=== PATIENT | male | born 1990 | race Asian ===

== ENCOUNTER 2018-11-19 15:08 | Inpatient (IN) ==
--- NOTE | 2018-11-19 16:24 | Emergency Department Note ---
History of Present Illness General Chief Complaint: Abnormal Labs/Diagnostic Testing Stated Complaint: ABNORMAL MRI, REFERRED BY [facility] Source: patient Mode of arrival: ambulatory Limitations: no limitations History of Present Illness Provider Complaint: + visual disturbance (right side visual field deficit) Onset (ago): 8 day(s) History of same: No Severity: mild Maximum Pain Intensity: 2 Current Pain Intensity: 2 Quality: + constant Relieved By: + none Exacerbated By: + none Context: + gradual onset On Anticoagulants: No Associated symptoms: + denies other symptoms Treatments Prior to Arrival: + none HPI Narrative: This 28-year-old male patient presents emergency department today , ambulatory, accompanied by friends. He was sent here by [facility] due to an abnormal MRI. The patient states 1-2 weeks ago, he developed upper respiratory infection symptoms. He states this was associated with a headache. 8 days ago, he reports losing vision in his right eye. He was seen and evaluated by [facility] who recommended ophthalmology consult. Patient was then seen by ophthalmology, who recommended an MRI due to concern of a possible tumor pushing on the optic nerve. MRI was performed outpatient today and showed multiple areas of subacute infarcts in the left medial occipital lobe and right cerebellar hemisphere as well as suspected trace subarachnoid hemorrhage within the left occipital lobe. The patient was advised to come to the emergency department due to these findings. The patient reports the visual field deficits which have been consistent since last week. He denies any recent subjective fever, but does report some subjective fevers last week. He traveled to and from [place] in September, but otherwise denies any other travel. He denies any ongoing congestion or runny nose, and states the visual disturbances have been stable. He does have a consistent mild headache, but otherwise denies any other symptoms including weakness, numbness, tingling, dizziness, nausea, vomiting, or other associated symptoms. There has been no trauma. Home Medications Home Medications Medication Instructions Recorded Confirmed Type amino acids-whey prot conc,iso 1 dose PO UD 11/19/18 11/19/18 History [Whey Protein] [id number] [Vicks 1 dose PO HS PRN 11/19/18 11/19/18 History Nyquil Nighttime Relief] Allergies Allergy/AdvReac Type Severity Reaction Status Date / Time No Known Allergies Allergy Unverified 11/19/18 16:15 Past Med/Surg History Medical History No pertinent past medical history Surgical History No pertinent past surgical history Social History Feels Safe at Home: Yes Smoking Status: Never smoker Review of Systems A total of 10 systems reviewed and were otherwise negative Physical Exam 2 Vital Signs: Vital Signs - 24 hr 11/19/18 15:12 11/19/18 17:08 11/19/18 17:28 Temperature 36.8 C Temperature Source Oral Sepsis Recent Feve r Within 48 Hours No Sepsis Action Take n by Nursing No Action Required Pulse Rate 95 H 71 Pulse Rate [Finger ] 69 Respiratory Rate 18 16 Respiratory Effort / Characteristics Non-Labored Respiratory Depth Normal Normal Blood Pressure 163/102 H Blood Pressure [Ri ght Arm] 144/79 H Blood Pressure Jessy n 122 Blood Pressure Jessy n [Right Arm] 100 Pulse Oximetry 97 97 97 Oxygen Delivery Me thod Room Air Room Air Room Air 11/19/18 19:11 Temperature Temperature Source Sepsis Recent Feve r Within 48 Hours Sepsis Action Take n by Nursing Pulse Rate Pulse Rate [Finger ] 78 Respiratory Rate 20 Respiratory Effort / Characteristics Non-Labored Sponta neous Respiratory Depth Normal Blood Pressure Blood Pressure [Ri ght Arm] 127/82 Blood Pressure Jessy n Blood Pressure Jessy n [Right Arm] 97 Pulse Oximetry 98 Oxygen Delivery Me thod Room Air Physical Exam: VITALS: Vitals are noted on the nurse's note and reviewed by myself. Vital signs stable. GENERAL: This is a 28-year-old male, in no acute distress, nondiaphoretic, well- developed well-nourished. SKIN: The skin was without rashes, erythema, edema, or bruising. There is no tenting of the skin. Capillary reflex less than 2 seconds. HEAD: Normocephalic atraumatic. No tenderness to palpation. EARS: External auditory canals clear, tympanic membranes pearly bianchi without erythema or effusion bilaterally. EYES: Pupils equal round and reactive to light and accommodation. Conjunctivae without injection, sclerae without icterus. Extraocular movements intact. NOSE: Patent, turbinates without inflammation or discharge. No sinus tenderness. MOUTH: Mucous membranes moist. Tonsils are not enlarged. Pharynx without erythema or exudate. Uvula midline. Airway patent. Tongue does not deviate. NECK: Supple without nuchal rigidity. No lymphadenopathy. No thyromegaly. Cervical spine is nontender. No JVD. HEART: Regular rate and rhythm without murmurs gallops or rubs. LUNGS: Clear to auscultation bilaterally without wheezes, rales or rhonchi. No dullness to percussion. No retractions or accessory muscle use. ABDOMEN: Positive bowel sounds x 4. Normal tympanic percussion. Soft, nontender, without masses or organomegaly. Head sign negative. No guarding or rebound tenderness. MUSCULOSKELETAL: No muscle atrophy, erythema, or edema noted. Full range of motion without joint tenderness in all extremities. No tenderness to palpation. Normal gait. Strength 5/5 throughout. NEURO: Patient was alert and oriented to person place and time. 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 Cranial nerves II through XII otherwise intact. Normal sensation to light and sharp touch. Deep tendon reflexes 2+ throughout. Negative Romberg and pronator drift. Course The patient was seen and evaluated as above. Outpatient MRI/report reviewed by myself. IV access obtained, labs drawn. I contacted [facility] neurosurgery. I spoke with Dr. Richards. He was agreeable with transfer initially, but would like to speak with stroke/ neurology. I then spoke with Dr. Peck he feels that the local neurologist should be involved and that the patient may not require transfer. He states he would like the local neurologist to review the images and then speak with them if needed. I contacted Dr. Shannon. She did review the images and contact me back. She recommends further workup with a CTA of the head and cervical spine. CTA performed and reviewed by myself and radiologist. I contacted Dr. Shannon to discuss the findings. She recommends admission under the medicine service with neurology consult. She did recommend initiating IV heparin without bolus due to the dissection. Labs reviewed by myself. I discussed the findings and recommendation with the patient at bedside. I did discuss the benefits versus risks associated with starting heparin therapy. The patient verbalizes understanding and agrees with the treatment plan. I discussed the case with my attending. I spoke with the [facility] hospitalist, Dr. Thompson who did agree to admission by his team. Please see their dictation regarding ongoing management care of this patient. Administered Medications Ioversol (Optiray 320 125ml) 116 ml IV ONCE PRN PRN Reason: Interaction Checking Stop: 11/23/18 17:23 Last Admin: 11/19/18 17:24 Dose: 116 ml Discontinued Medications Heparin Sodium/Dextrose () 1 ea N/A ONE ONE; Protocol Stop: 11/19/18 18:09 Last Admin: 11/19/18 18:58 Dose: Not Given Heparin Sodium/Dextrose (Heparin Sodium/Dextrose) Confirm Administered Dose 25, 000 units IV .[employer] ONE Stop: 11/19/18 18:54 Last Admin: 11/19/18 18:58 Dose: 22 ml Medical Decision Making Differential Diagnosis + carpal tunnel syndrome, + convulsions, + delirium, + subarachnoid hemorrhage, + peripheral neuropathy, + cerebrovascular accident, + multiple sclerosis, + transient cerebral ischemia, + CVA, + TIA, + encephalitis, + meningitis, + multiple sclerosis, + Guillain-Java syndrome and + peripheral neuropathy Medical Records Attestation: I reviewed the patient's medical records. Pituitary MRI performed earlier today. MRI OF THE BRAIN AND PITUITARY WITHOUT AND WITH IV CONTRAST Common difficulties. CLINICAL HISTORY: R51, H43 HEADACHES, VITREOUS HEMORRHAGE. COMPARISON STUDY: No previous studies for comparison. TECHNIQUE: MRI of the brain was performed from the vertex to the skull base utilizing various T1 and T2 weighted sequences. Following the IV administration of 5.56) mL of Gadavist contrast, additional enhanced images were obtained. A pituitary protocol was followed in which a dynamic thin section coronal T1- weighted images were obtained through the pituitary. These were supplemented with thin section post gadolinium T1-weighted images through the pituitary. FINDINGS: Sagittal T1, axial diffusion, proton density and T2 weighted axial, coronal FLAIR, and pre and post axial T1-weighted images were acquired. These were supplemented with post gadolinium coronal T1 weighted images. No intra or extra-axial mass lesions are visualized. Axial diffusion-weighted images reveal foci of increased signal within the left medial occipital lobe. In addition there are 2 punctate foci of increased signal within the right cerebellar hemisphere. These lesions are not significantly low signal on the corresponding ADC map. Subacute infarcts are suspected. There is post gadolinium gyriform enhancement within the left medial occipital lobe a finding which is consistent with a subacute infarct. There is no evidence of ventricular dilatation. Proton density T2-weighted and FLAIR images reveal foci of increased T2 signal in the areas of suspected subacute infarction. In addition there is a focus of increased FLAIR signal within the subarachnoid space of the left occipital lobe superior to the infarct. This likely represents trace subarachnoid hemorrhage There are no abnormal flow voids. Dynamic images the pituitary reveal no optic chiasmatic abnormalities. The infundibulum is within the midline. An area of decreased signal within the far posterior aspect the left pituitary gland is felt to represent partial volume averaging with the aerated sphenoid sinus. IMPRESSION: 1. Diffusion-weighted signal abnormalities involving the left medial occipital lobe and right cerebellar hemisphere, most consistent with subacute infarcts 2. Gyriform enhancement involving the left medial occipital lobe, likely secondary to a subacute infarct 3. Suspected trace subarachnoid hemorrhage within the left occipital lobe 4. No pituitary masses identified. Electronically signed by: Vinnie Marshall M.D. 11/19/2018 2:12 PM Home Medications Current Medication List: was personally reviewed by me Laboratory Data Attestation: I reviewed the patient's lab results. No significant leukocytosis. Very mild anemia with a hemoglobin of 13.5. No thrombocytopenia. Coags without abnormality. Renal and hepatic function and electrolytes without abnormality. Result diagrams: 11/19/18 16:05 11/19/18 16:05 Lab Results 11/19/18 11/19/18 11/19/18 Range/Units 16:05 16:05 16:05 WBC 7.15 (4.8-10.8) K/uL RBC 6.16 H (4.7-6.1) M/uL Hgb 13.5 L (14.0-18.0) g/dL Hct 40.8 L (42-52) % MCV 66.2 L (80-100) fL MCH 21.9 L (25-34) pg MCHC 33.1 (32-36) g/dL RDW Std Deviation 35.1 L (36.4-46.3) fL RDW Coeff of Maria Teresa 15.0 H (11.5-14.5) % Plt Count 243 (130-400) K/uL MPV 9.8 (7.4-10.4) fL Immature Gran % (Auto) 0.1 % Neut % (Auto) 67.4 % Lymph % (Auto) 26.4 % [place] % (Auto) 4.2 % Eos % (Auto) 1.5 % Baso % (Auto) 0.4 % Immature Gran # (Auto) 0.01 (0.00-0.02) K/uL Neut # (Auto) 4.81 (1.4-6.5) K/uL Lymph # (Auto) 1.89 (1.2-3.4) K/uL [place] # (Auto) 0.30 (0.11-0.59) K/uL Eos # (Auto) 0.11 (0-0.5) K/uL Baso # (Auto) 0.03 (0-0.2) K/uL Microcytosis Present Tear Drop Cells 1+ Ovalocytes 1+ PT 11.5 (9.0-12.0) Seconds INR 1.1 (0.9-1.1) APTT 26.9 (21.0-31.0) Seconds PTT Ratio 1.0 Sodium 138 (136-145) mmol/L Potassium 3.6 (3.5-5.1) mmol/L Chloride 105 (98-107) mmol/L Carbon Dioxide 24 (21-32) mmol/L Anion Gap 9.0 (3-11) BUN 14 (7-18) mg/dl Creatinine 1.00 (0.6-1.4) mg/dl Est Cr Clr Drug Dosing 90.4 ml/min Est GFR ( Amer) 116.5 Est GFR (Non-Af Amer) 100.6 BUN/Creatinine Ratio 14.3 (10-20) Glucose 100 H (70-99) mg/dl Calcium 9.2 (8.5-10.1) mg/dl Total Bilirubin 0.6 (0.2-1) mg/dl AST 16 (15-37) U/L ALT 30 (12-78) U/L Alkaline Phosphatase 77 (45-117) U/L Total Protein 8.1 (6.4-8.2) gm/dl Albumin 4.5 (3.4-5.0) gm/dl Globulin 3.6 (2.5-4.0) gm/dl Albumin/Globulin Ratio 1.2 (0.9-2) Imaging Data Radiologist's Impression: CT ANGIOGRAM OF THE BRAIN COMBO; CT ANGIOGRAM OF THE NECK CLINICAL HISTORY: Posterior circulation stroke. COMPARISON STUDY: MRI of the brain dated 11/19/2018. TECHNIQUE: Unenhanced axial CT scan of the brain is performed. Subsequently, following the IV administration of 116 of Optiray 320, CT angiogram of the head and neck was performed from the aortic arch to the vertex. Images are reviewed in the axial, sagittal, and coronal planes. 3-D MIPS images are created and assessed. IV contrast was administered without complication. All measurements were calculated based on NASCET criteria. A dose lowering technique was utilized adhering to the principles of ALARA. CT DOSE: 1143.33 mGy.cm FINDINGS: Brain parenchyma: There is subtle loss of bianchi-white matter differentiation identified in the left occipital lobe consistent with subacute ischemia. The brain parenchyma is otherwise normal in appearance. There is no hemorrhage, mass effect, or evidence of acute territorial ischemia by CT criteria. There is no evidence of enhancing mass lesion on the angiogram phase images. The ventricles, sulci, and cisterns are normal in configuration. No extra-axial fluid collection is seen. Thoracic aorta: Visualized portions of the thoracic aorta are normal in caliber. The aortic arch demonstrates standard 3-vessel anatomy. Right carotid arterial system: The right common carotid artery is widely patent , as are the right internal and external carotid arteries. Left carotid arterial system: The left common carotid artery is widely patent, as are the left internal and external carotid arteries. Vertebral arteries: The vertebral arteries are patent bilaterally and codominant. There is a focal dissection measuring approximately 1 cm identified in the distal left vertebral artery best seen on image #612. This is located at the level of C1, just below the skull base. Subclavian arteries: Widely patent bilaterally. Intracranial vasculature: The internal carotid arteries are patent at the skull base, as are the anterior and middle cerebral arteries bilaterally. The vertebrobasilar system and posterior cerebral arteries are widely patent. The intracranial vertebral arteries are codominant. There is no aneurysm, high- grade stenosis, or focal vessel cut off seen throughout the intracranial circulation. Jugular veins: Widely patent bilaterally. Dural sinuses: Patent. Lung apices: There is a 10 mm irregular right upper lobe opacity seen on image # 29. Partially imaged upper lobe lung parenchyma is otherwise clear. Soft tissues: The visualized pharyngeal soft tissues are normal in appearance noting angiographic phase technique. The oropharyngeal airway appears widely patent. The salivary and thyroid glands are normal in appearance. No cervical lymphadenopathy is seen. Skeletal structures: The calvarium appears intact. The cervical spine is within normal limits. Sinuses and mastoids: The paranasal sinuses are clear. The mastoid air cells are well pneumatized. IMPRESSION: 1. There is subtle loss of bianchi-white differentiation identified in the left occipital lobe consistent with subacute ischemia. This was better appreciated on today's MRI. 2. There is no hemorrhage or mass effect. 3. There is a focal dissection identified within the distal left vertebral artery just below the skull base. 4. Otherwise unremarkable CT angiogram of the neck. 5. Unremarkable CT angiogram of the brain. 6. There is a 10 mm irregular density identified in the right upper lobe. This likely represents scarring. Correlation a nonemergent chest CT is recommended for further assessment. Electronically signed by: Moreno Frias M.D. 11/19/2018 5:39 PM ECG Data Attestation: I personally reviewed and interpreted this ECG as follows: Indication: other (neuro symptoms) Rate (beats per minute): 68 Rhythm: normal sinus Findings: no acute ischemic change and no ectopy Comparison ECG Date: no prior available Blood Pressure Blood Pressure Findings: Elevated blood pressure Blood Pressure Disposition: further management by hospitalist Head Trauma GCS Score: 15 MDM Narrative This 28-year-old male patient presents emergency department today, ambulatory, complaining of neurological symptoms. He presents with a right homonymous superior quadrantanopia. Symptoms began approximately 8 days ago, after the patient had been taking OTC cold medication for an upper respiratory infection. Symptoms have been stable for the past 8 days. He had an outpatient MRI today which showed evidence of multiple subacute infarcts as well as a possible trace subarachnoid hemorrhage within the left occipital lobe. Due to these findings, I initially contacted neurosurgery at [facility]. They would like to speak with neurology, and when I spoke with the neurologist, they felt that further evaluation should be done here locally with the local neurologist on board. I did speak with the local neurologist, and further imaging performed as above. There is evidence of a focal dissection in the distal left vertebral artery at the level of C1, just below the skull base. There is no evidence of intracranial hemorrhage based on CT scan findings. Dr. Shannon was agreeable with medical management here at [facility]. The patient will be admitted under the medicine service. Heparin was initiated here in the ED without bolus. I did speak with the hospitalist who was agreeable with the admission and plan of care. All questions answered with patient satisfaction. Please see hospitalist dictation regarding ongoing management care of this patient. The chart was completed utilizing [employer] Speech voice recognition software. Grammatical errors, random word insertions, pronoun errors, and incomplete sentences are an occasional consequence of this system due to software limitations, ambient noise, and hardware issues. Any formal questions or concerns about the content, text, or information contained within the body of this dictation should be directly addressed to the provider for clarification. Impression & Plan Vertebral artery dissection, Embolic stroke Discharge Plan Visit Data Chief Complaint: Abnormal Labs/Diagnostic Testing Stated Complaint: ABNORMAL MRI, REFERRED BY [facility] ED Provider: Valente Linton ED Midlevel Provider: Lenore Arriaga Discharge Problem: Vertebral artery dissection, Embolic stroke Discharge Instructions Interventions: ED Discharge Assessment Last Done: 11/19/18 19:32
[2018-11-19 16:26] LABS: Basophils # (auto) 0.03 K/uL (0-0.2); Basophils % (auto) 0.4 %; Eosinophils # (auto) 0.11 K/uL (0-0.5); Eosinophils % (auto) 1.5 %; Hematocrit (blood only) 40.8 % (42-52); Hemoglobin 13.5 g/dL (14.0-18.0); Immature Granulocytes # (auto) 0.01 K/uL (0.00-0.02); Immature Granulocytes % (auto) 0.1 %; Lymphocytes # (auto) 1.89 K/uL (1.2-3.4); Lymphocytes % (auto) 26.4 %; Mean Corpuscular Hgb Conc 33.1 g/dL (32-36); Mean Corpuscular Volume 66.2 fL (80-100); Mean Platelet Volume 9.8 fL (7.4-10.4); Monocytes % (auto) 4.2 %; Neutrophils # (auto) 4.81 K/uL (1.4-6.5); Neutrophils % (auto) 67.4 %; Platelet Count 243 K/uL (130-400); RDW Standard Deviation 35.1 fL (36.4-46.3); Red Blood Count 6.16 M/uL (4.7-6.1); White Blood Count 7.15 K/uL (4.8-10.8)
[2018-11-19 16:34] LABS: INR 1.1 (0.9-1.1); Partial Thromboplastin Time 26.9 Seconds (21.0-31.0); Prothrombin Time 11.5 Seconds (9.0-12.0)
[2018-11-19 16:40] LABS: Albumin Level 4.5 gm/dl (3.4-5.0); BUN Creatinine Ratio 14.3 (10-20); Calcium 9.2 mg/dl (8.5-10.1); Creatinine Clr Calc Pharmacy 90.4 ml/min; Est GFR (African American) 116.5; Est GFR (Non-African American) 100.6; Potassium 3.6 mmol/L (3.5-5.1)
[2018-11-19 16:43] LABS: Albumin Globulin Ratio 1.2 (0.9-2); Bilirubin,Total 0.6 mg/dl (0.2-1); Globulin 3.6 gm/dl (2.5-4.0); Total Protein 8.1 gm/dl (6.4-8.2)
[2018-11-19] MEDS ORDERED: OPTIRAY 320 125ml IV PRN (17:24)
--- NOTE | 2018-11-19 17:40 | CT Scan Report ---
CT ANGIOGRAM OF THE BRAIN COMBO; CT ANGIOGRAM OF THE NECK CLINICAL HISTORY: Posterior circulation stroke. COMPARISON STUDY: MRI of the brain dated 11/19/2018. TECHNIQUE: Unenhanced axial CT scan of the brain is performed. Subsequently, following the IV adminis tration of 116 of Optiray 320, CT angiogram of the head and neck was performed from the aortic arch t o the vertex. Images are reviewed in the axial, sagittal, and coronal planes. 3-D MIPS images are cre ated and assessed. IV contrast was administered without complication. All measurements were calculate d based on NASCET criteria. A dose lowering technique was utilized adhering to the principles of ALA RA. CT DOSE: 1143.33 mGy.cm FINDINGS: Brain parenchyma: There is subtle loss of bianchi-white matter differentiation identified in the left oc cipital lobe consistent with subacute ischemia. The brain parenchyma is otherwise normal in appearanc e. There is no hemorrhage, mass effect, or evidence of acute territorial ischemia by CT criteria. The re is no evidence of enhancing mass lesion on the angiogram phase images. The ventricles, sulci, and cisterns are normal in configuration. No extra-axial fluid collection is seen. Thoracic aorta: Visualized portions of the thoracic aorta are normal in caliber. The aortic arch demo nstrates standard 3-vessel anatomy. Right carotid arterial system: The right common carotid artery is widely patent, as are the right int ernal and external carotid arteries. Left carotid arterial system: The left common carotid artery is widely patent, as are the left international recruiter al and external carotid arteries. Vertebral arteries: The vertebral arteries are patent bilaterally and codominant. There is a focal di ssection measuring approximately 1 cm identified in the distal left vertebral artery best seen on angus ge #612. This is located at the level of C1, just below the skull base. Subclavian arteries: Widely patent bilaterally. Intracranial vasculature: The internal carotid arteries are patent at the skull base, as are the ante rior and middle cerebral arteries bilaterally. The vertebrobasilar system and posterior cerebral jona luciano are widely patent. The intracranial vertebral arteries are codominant. There is no aneurysm, hig h-grade stenosis, or focal vessel cut off seen throughout the intracranial circulation. Jugular veins: Widely patent bilaterally. Dural sinuses: Patent. Lung apices: There is a 10 mm irregular right upper lobe opacity seen on image #29. Partially imaged upper lobe lung parenchyma is otherwise clear. Soft tissues: The visualized pharyngeal soft tissues are normal in appearance noting angiographic pha se technique. The oropharyngeal airway appears widely patent. The salivary and thyroid glands are nor mal in appearance. No cervical lymphadenopathy is seen. Skeletal structures: The calvarium appears intact. The cervical spine is within normal limits. Sinuses and mastoids: The paranasal sinuses are clear. The mastoid air cells are well pneumatized. IMPRESSION: 1. There is subtle loss of bianchi-white differentiation identified in the left occipital lobe consisten t with subacute ischemia. This was better appreciated on today's MRI. 2. There is no hemorrhage or mass effect. 3. There is a focal dissection identified within the distal left vertebral artery just below the skul l base. 4. Otherwise unremarkable CT angiogram of the neck. 5. Unremarkable CT angiogram of the brain. 6. There is a 10 mm irregular density identified in the right upper lobe. This likely represents scar ring. Correlation a nonemergent chest CT is recommended for further assessment. Electronically signed by: Moreno Frias M.D. 11/19/2018 5:39 PM
[2018-11-19 18:03] LABS: Microcytosis Present; Ovalocytes 1+; Tear Drop Cells 1+
[2018-11-19] MEDS ORDERED: Heparin IV Standard *NO* Bolus ONE (18:08)
--- NOTE | 2018-11-19 18:23 | History & Physical Report ---
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 Per the ER physician spoke with Shasha Shannon and neurology and she recommended intravenous heparin therapy. Hypercoagulable workup has been sent I spoke to multiple physicians this evening including Dr. Fish who recommended anticoagulation he was not instructor product inspection but graciously took my phone call. I spoke to on-call physician and neurosurgery Keila with [facility] who recommended I talk to the neuro interventionalists that he was a neurosurgeon and cannot render any recommendations. - to try to talk to her neuro interventions instructor product inspection and I was informed by them that the emergency room had already called her she had talked with Dr. Marquez and Dr. Salamanca, Forgive me if the spell is incorrect. I had spoken to the emergency room physician's it administrative assistant prior to admitting this patient she did not provide me insight that they have already spoken to [place] regarding this patient. According to the gis engineer back pain by her she is transfer center they recommended a local neurologist evaluate the patient. Was told by the emergency room physician's it administrative assistant that Dr. manzano recommended anticoagulation. 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 He states this was associated with a headache. 8 days ago, he reports losing vision in his right eye. He was seen and evaluated by [facility] who recommended ophthalmology consult. Patient was then seen by ophthalmology, who recommended an MRI due to concern of a possible tumor pushing on the optic nerve. MRI was performed outpatient today and showed multiple areas of subacute infarcts in the left medial occipital lobe and right cerebellar hemisphere as well as suspected trace subarachnoid hemorrhage within the left occipital lobe. Pt relates to returning from [place], and starting Cross fit workouts around developed symptoms around 11/06 with headache and sinus pressure, eventually went thru work up as above, pt only has residual right upper outer visual field loss in both eyes. There is not a family history of thrombphilia or collagen disorders or cva Allergies Allergy/AdvReac Type Severity Reaction Status Date / Time No Known Allergies Allergy Unverified 11/19/18 16:15 Home Medications Home Medications Medication Instructions Recorded Confirmed Type amino acids-whey prot conc,iso 1 dose PO UD 11/19/18 11/19/18 History [Whey Protein] [id number] [Vicks 1 dose PO HS PRN 11/19/18 11/19/18 History Nyquil Nighttime Relief] Past Med/Surg History Medical History No pertinent past medical history Surgical History No pertinent past surgical history Social History Current Living Situation: Other Current Living Situation Comment: Rented Apartment with Roomate Other Information That Helps Us Care for You: No Feels Safe at Home: Yes Safety Concerns: Feels Safe At This Time Smoking Status: Former smoker Tobacco Type: cigarettes Do You Dip or Chew Tobacco: No Second Hand Exposure: No Tobacco Cessation Education Requested by Patient: No Hx Alcohol Use: Yes Alcohol type: beer Alcohol Intake Frequency: holidays/ special occasions only Hx Substance Use: No Beliefs That Will Affect Care: None Communication Ability: Effective Review of Systems ROS: well nourished well developed. Only complaining of vision changes No double vision but does complain of blurry vision and right upper outer visual field No problems with speech or swallowing No palpitations, chest pain or pressure No Wheezing or breathing issues No abdominal pain nausea vomiting diarrhea changes in appetite or weight No burning urine urine frequency or changes in color No focal joint pain or muscle pain No skin rashes or oral lesions No unusual bruising or bleeding No focused back pain or numbness or loss of strength No changes in memory or confusion no obvious Physical Exam 2 Vital Signs (Past 24 Hours): Last Vital Signs Temp 36.8 C 11/19/18 15:12 Pulse 69 11/19/18 17:28 Resp 16 11/19/18 17:28 BP 144/79 H 11/19/18 17:28 Pulse Ox 97 11/19/18 17:28 The patient appeared well nourished and normally developed. Vital signs as documented. Head exam is unremarkable. normocephalic, atraumatic Visual field by confrontation shows right upper outer visual field loss in both eyes Neck is without jugular venous distension, thyromegaly, or lymphademopathy there are no carotid bruits auscultated Lungs are clear to auscultation and percussion. Cardiac exam reveals Rhythm is regular. First and second heart sounds normal. Abdominal exam reveals normal bowel sounds, no masses, no organomegaly Extremities are nonedematous and both pedal pulses are present Neurologic exam is A&Ox3, no focal deficits, strength is equal bilateral finger to nose is intact toes are downgoing negative Romberg Psychologically seems neither anxious or depressed Skin is warm Dry without bruises or lesions PERRLA EOMI Results & Data Diagnostic Findings CT head and CTA IMPRESSION: 1. There is subtle loss of bianchi-white differentiation identified in the left occipital lobe consistent with subacute ischemia. This was better appreciated on today's MRI. 2. There is no hemorrhage or mass effect. 3. There is a focal dissection identified within the distal left vertebral artery just below the skull base. 4. Otherwise unremarkable CT angiogram of the neck. 5. Unremarkable CT angiogram of the brain. 6. There is a 10 mm irregular density identified in the right upper lobe. This likely represents scarring. Correlation a nonemergent chest CT is recommended for further assessment. MRI IMPRESSION: 1. Diffusion-weighted signal abnormalities involving the left medial occipital lobe and right cerebellar hemisphere, most consistent with subacute infarcts 2. Gyriform enhancement involving the left medial occipital lobe, likely secondary to a subacute infarct 3. Suspected trace subarachnoid hemorrhage within the left occipital lobe 4. No pituitary masses identified.
[2018-11-19] MEDS ORDERED: HEPARIN 25000 UNIT/500 ML D5W IV ONE (18:53)
[2018-11-19] MEDS ORDERED: HEPARIN STANDARD DEXTROSE 25,000 UNITS/500 ML IV SCH (19:55)
[2018-11-19] MEDS ORDERED: PHARMACIST DISCHARGE MED REC CONSULT PRN (20:38)
[2018-11-19] MEDS ORDERED: POLYETHYLENE (MIRALAX) 17 GM PACK PO PRN (20:38)
[2018-11-19] MEDS ORDERED: ONDANSETRON INJ 2 MG/ML 2 ML VIAL IV PRN (20:38)
[2018-11-19] MEDS ORDERED: ACETAMINOPHEN 325 MG TAB PO PRN (20:38)
[2018-11-20 01:04] LABS: Partial Thromboplastin Ratio 2.6
[2018-11-20 01:13] LABS: Partial Thromboplastin Time 68.3 Seconds (21.0-31.0)
[2018-11-20 06:54] LABS: Basophils # (auto) 0.04 K/uL (0-0.2); Basophils % (auto) 0.7 %; Eosinophils # (auto) 0.32 K/uL (0-0.5); Eosinophils % (auto) 5.3 %; Hematocrit (blood only) 39.7 % (42-52); Hemoglobin 12.9 g/dL (14.0-18.0); Lymphocytes # (auto) 2.93 K/uL (1.2-3.4); Lymphocytes % (auto) 48.5 %; Mean Corpuscular Hgb Conc 32.5 g/dL (32-36); Mean Corpuscular Volume 66.4 fL (80-100); Mean Platelet Volume 9.9 fL (7.4-10.4); Monocytes # (auto) 0.31 K/uL (0.11-0.59); Monocytes % (auto) 5.1 %; Neutrophils # (auto) 2.44 K/uL (1.4-6.5); Neutrophils % (auto) 40.4 %; Platelet Count 234 K/uL (130-400); RDW Standard Deviation 35.3 fL (36.4-46.3); Red Blood Count 5.98 M/uL (4.7-6.1); White Blood Count 6.04 K/uL (4.8-10.8)
[2018-11-20 07:11] LABS: Partial Thromboplastin Ratio 4.1
[2018-11-20 07:25] LABS: BUN Creatinine Ratio 13.7 (10-20); Calcium 9.1 mg/dl (8.5-10.1); Creatinine Clr Calc Pharmacy 83.7 ml/min; Est GFR (African American) 106.2; Est GFR (Non-African American) 91.6; Potassium 3.9 mmol/L (3.5-5.1)
[2018-11-20 07:26] LABS: Microcytosis Present
[2018-11-20] MEDS: ATORVASTATIN 40 MG TAB PO SCH (08:12)
[2018-11-20 09:22] LABS: Estimated Average Glucose 120 mg/dl; Hemoglobin A1C 5.8 % (4.5-5.6)
--- NOTE | 2018-11-20 12:45 | CT Scan Report ---
CT head/brain wo con CLINICAL HISTORY: Posterior circulation stroke status post heparin. Advise for hemorrhagic transporta tion or subarachnoid hemorrhage. COMPARISON STUDY: 11/19/2018 TECHNIQUE: Axial CT of the brain is performed from the vertex to the skull base. IV contrast was not administered for this examination. A dose lowering technique was utilized adhering to the principles of ALARA. CT DOSE: 614.27 mGy.cm FINDINGS: There is no CT evidence of acute hemorrhage. No intra or extra-axial mass lesions are visualized. The occipital infarct described on the prior MRI is barely perceptible on this noncontrast CT study. There is no midline shift. There is no evidence of pathologic ventricular dilatation. There is no evidence of acute sinusitis IMPRESSION: 1. No change from the prior study. No evidence of acute hemorrhage. Electronically signed by: Vinnie Marshall M.D. 11/20/2018 12:44 PM
--- NOTE | 2018-11-20 14:11 | Neurology Consultation ---
Date of Consultation November 20, 2018 Assessment & Plan (1) Vertebral artery dissection: 1. MRI with left medial occipital lobe and right cerebellar hemisphere subacute infarcts and the left medial occipital lobe, 2. CTA head and neck- dissection distal left vertebral artery 3. currently receiving heparin gtt 4. transition to coumadin- may need a bridge with lovenox 5. out patient follow up with ophthalmology 6. continue coumadin for 3-6 months repeat CTA neck for recannelization of vessel. if open can stop coumadin and start aspirin 81 mg for a lifetime 7. follow up with neurology 4-6 weeks after discharge Shasha Lim PAC schedule 8. hypercoag labs ordered will follow up when available 9. avoid hypotension 10. 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 Headache and blind spot to R began with URI several days later. No new neuro sx since. No vertigo, instability. No family hx of hypermobility, aneurysm, Exam notable for nonhomonymous hemianopsia, and is otherwise nml. Imp R vert artery dissection, traumatic. Coumadin x 3 months, repeat CTA head and neck and if stable asa. Pt needs to avoid exercise other than walking until CTA repeated and off coumadin, Agree with statin. 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 About 10 days ago he started having a headache, vision loss in his right eye and sinus issues. He took Nyquil for 2 days thinking it was related to his sinus congestion. He then went to [place] and was referred to ophthalmology and was seen to have a right superior vision loss and was sent to the ED for an MRI sella to r/o tumor. He was seen to have a stroke. He was admitted and ordered CTA head and neck finding a dissection and then started on IV heparin. He denies any manipulation or injury to his neck. He did have a minor fall while playing soccer when he was in [place]. he is on no chronic medications and no known chronic illnesses. He is not sure about family history he has 1 sister and she does have asthma. no personal or family history of DVT or PE. He is a past smoker, social EtOH use , no other drugs. denies CP, SOB, abdominal pain, one sided weakness, numbness tingling, N, V, swallowing issues, hearing loss. Allergies Allergy/AdvReac Type Severity Reaction Status Date / Time No Known Allergies Allergy Unverified 11/19/18 16:15 Home Medications Home Medications Medication Instructions Recorded Confirmed Type enoxaparin 60 mg SC Q12H #8 ea 11/21/18 Rx warfarin [Coumadin] 5 mg PO DAILY@1600 #30 tab 11/21/18 Rx Patient History Medical History No pertinent past medical history Surgical History No pertinent past surgical history Social History Current Living Situation: Other Current Living Situation Comment: Rented Apartment with Roomate Feels Safe at Home: Yes Smoking Status: Former smoker Tobacco Type: cigarettes Second Hand Exposure: No Hx Alcohol Use: Yes Alcohol type: beer Alcohol Intake Frequency: holidays/ special occasions only Hx Substance Use: No Beliefs That Will Affect Care: None Communication Ability: Effective Physical Exam 2 Vital Signs (Past 24 Hours): Last Vital Signs Temp 37.1 C 11/20/18 11:41 Pulse 68 11/20/18 11:41 Resp 11 L 11/20/18 11:41 BP 123/74 11/20/18 11:41 Pulse Ox 97 11/20/18 11:41 Physical Exam: Constitutional: appearance nourished, healthy and normal Ears, Nose, Mouth and Throat: mucous membranes moist, no injection and skin normal, eyes normal Cardiovascular: normal S-1 and S-2 and regular rate and rhythm Respiratory: clear to auscultation (CTA) and no rales, rhonchi or wheeze Musculoskeletal: no peripheral edema and good distal pulses Skin: no stigmata of neurocutaneous disease noted and normal and intact Eyes: extraocular muscles intact (EOMI) and pupils equal, round and reactive to light (PERRL), field cut right upper superior quadrant NEUROLOGIC EXAMINATION: Mental status: Alert and interactive Oriented to full date and location Oriented to person Speech fluent with no evidence of aphasia Cranial Nerves smile eye brow raise symmetric Reflexes: Deep tendon reflexes were symmetrical and graded 2/5. Plantar responses were flexor. Sensory: no sensory deficits, light of cool touch Coordination: Romberg absent Gait/Stance: Posture normal. Gait normal: with steady with steps, base, turning, heel and toe walking and tandem gait. Motor: Negative for pronator drift of out stretched arms with eyes closed. Strength: biceps triceps, hand blocker and cutter contact lens 5/5 bilaterally, hip flex patellar, plantar, 5/5 bilaterally Results & Data Laboratory Results Abnormal lab results 11/19/18 11/19/18 11/20/18 Range/Units 16:05 16:05 00:34 RBC 6.16 H (4.7-6.1) M/uL Hgb 13.5 L (14.0-18.0) g/dL Hct 40.8 L (42-52) % MCV 66.2 L (80-100) fL MCH 21.9 L (25-34) pg RDW Std Deviation 35.1 L (36.4-46.3) fL RDW Coeff of Maria Teresa 15.0 H (11.5-14.5) % APTT 68.3 H* (21.0-31.0) Seconds Glucose 100 H (70-99) mg/dl Hemoglobin A1c (4.5-5.6) % 11/20/18 11/20/18 11/20/18 Range/Units 06:35 06:35 06:35 RBC (4.7-6.1) M/uL Hgb 12.9 L (14.0-18.0) g/dL Hct 39.7 L (42-52) % MCV 66.4 L (80-100) fL MCH 21.6 L (25-34) pg RDW Std Deviation 35.3 L (36.4-46.3) fL RDW Coeff of Maria Teresa 15.0 H (11.5-14.5) % APTT 106.0 H* (21.0-31.0) Seconds Glucose (70-99) mg/dl Hemoglobin A1c 5.8 H (4.5-5.6) % Diagnostic Findings MRI with and without- diffusion-weighted signal abnormalities involving the left medial occipital lobe and right cerebellar hemisphere, most consistent with subacute infarcts Gyriform enhancement involving the left medial occipital lobe, likely secondary to a subacute infarct Suspected trace subarachnoid hemorrhage within the left occipital lobe No pituitary masses identified. CTA head/neck- There is subtle loss of bianchi-white differentiation identified in the left occipital lobe consistent with subacute ischemia. This was better appreciated on today's MRI. There is no hemorrhage or mass effect. There is a focal dissection identified within the distal left vertebral artery just below the skull base. Otherwise unremarkable CT angiogram of the neck. Unremarkable CT angiogram of the brain. There is a 10 mm irregular density identified in the right upper lobe. This likely represents scarring. Correlation a nonemergent chest CT is recommended for further assessment. CT head- repeated after heparin started- . No change from the prior study. No evidence of acute hemorrhage.
[2018-11-20 14:39] LABS: Partial Thromboplastin Ratio 2.5
[2018-11-20 14:41] LABS: Partial Thromboplastin Time 64.7 Seconds (21.0-31.0)
--- NOTE | 2018-11-20 14:52 | Hospitalist Progress Note ---
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 Per the ER physician spoke with Shasha Shannon and neurology and she recommended aspirin, lovenox, coumadin. Hypercoagulable workup has been sent (2) Vertebral artery dissection: Left vertebral artery dissection is suggested on CT angiogram of the brain heparin is recommended by neurology patient relates a possible cross fit exercise that may have preceded some of his symptoms Subjective Patient has no progression of symptoms repeat CT scan does not show progression of or evolution of stroke or hemorrhage neurology is seen and request that he be transitioned to Coumadin with Lovenox as a bridge and Lovenox teaching. Start chronic daily aspirin therapy Review of Systems ROS: well nourished well developed. No double vision blurry vision but still with visual field loss No problems with speech or swallowing No palpitations, chest pain or pressure No Wheezing or breathing issues No abdominal pain nausea vomiting diarrhea changes in appetite or weight No burning urine urine frequency or changes in color No focal joint pain or muscle pain No skin rashes or oral lesions No unusual bruising or bleeding No focused back pain or numbness or loss of strength No changes in memory or confusion Physical Exam 2 Vital Signs (Past 24 Hours): Last Vital Signs Temp 37.1 C 11/20/18 11:41 Pulse 68 11/20/18 11:41 Resp 11 L 11/20/18 11:41 BP 123/74 11/20/18 11:41 Pulse Ox 97 11/20/18 11:41 The patient appeared well nourished and normally developed. Vital signs as documented. Head exam is unremarkable. normocephalic, atraumatic he has right upper outer visual field loss in both eyes otherwise unremarkable Neck is without jugular venous distension, thyromegaly, or lymphademopathy Lungs are clear to auscultation and percussion. Cardiac exam reveals Rhythm is regular. First and second heart sounds normal. Abdominal exam reveals normal bowel sounds, no masses, no organomegaly Extremities are nonedematous and both pedal pulses are present Neurologic exam is A&Ox3, no focal deficits, strength is equal bilateral Psychologically seems neither anxious or depressed Skin is warm Dry without bruises or lesions _ (1) Embolic stroke Laterality of affected vessel: left Precerebral and cerebral artery: vertebral artery Qualified Code(s): I63.112 - Cerebral infarction due to embolism of left vertebral artery
[2018-11-20] MEDS ORDERED: ENOXAPARIN 1 MG/KG SC SCH (15:00)
[2018-11-20] MEDS ORDERED: WARFARIN SOD 5 MG TAB PO SCH (16:00)
[2018-11-20] MEDS ORDERED: LOVENOX TEACHING KIT ONE (19:15)
[2018-11-20] MEDS: ENOXAPARIN INJ 60 MG/0.6 ML SYR SC SCH (19:57)
[2018-11-20] MEDS ORDERED: Nursing to Pharmacy Communication ONE (20:09)
[2018-11-21 06:09] LABS: Basophils # (auto) 0.04 K/uL (0-0.2); Basophils % (auto) 0.7 %; Eosinophils # (auto) 0.27 K/uL (0-0.5); Eosinophils % (auto) 4.7 %; Hematocrit (blood only) 40.3 % (42-52); Hemoglobin 12.9 g/dL (14.0-18.0); Immature Granulocytes # (auto) 0.02 K/uL (0.00-0.02); Immature Granulocytes % (auto) 0.3 %; Lymphocytes % (auto) 43.7 %; Mean Corpuscular Volume 66.2 fL (80-100); Mean Platelet Volume 9.8 fL (7.4-10.4); Monocytes # (auto) 0.25 K/uL (0.11-0.59); Monocytes % (auto) 4.4 %; Neutrophils # (auto) 2.64 K/uL (1.4-6.5); Neutrophils % (auto) 46.2 %; Platelet Count 216 K/uL (130-400); RDW Standard Deviation 35.3 fL (36.4-46.3); Red Blood Count 6.09 M/uL (4.7-6.1); White Blood Count 5.72 K/uL (4.8-10.8)
[2018-11-21 06:37] LABS: BUN Creatinine Ratio 15.7 (10-20); Calcium 9.3 mg/dl (8.5-10.1); Creatinine Clr Calc Pharmacy 74.1 ml/min; Est GFR (African American) 91.6; Est GFR (Non-African American) 79.1; Hypochromasia Present; Microcytosis Present; Ovalocytes 1+; Potassium 4.1 mmol/L (3.5-5.1)
[2018-11-21 06:45] LABS: INR 1.2 (0.9-1.1); Prothrombin Time 11.8 Seconds (9.0-12.0)
[2018-11-21] MEDS: ATORVASTATIN 40 MG TAB PO SCH (07:55)
[2018-11-21] MEDS: ENOXAPARIN INJ 60 MG/0.6 ML SYR SC SCH (07:55)
[2018-11-21] MEDS ORDERED: STROKE PATIENT DISCHARGE STA (11:13)
--- NOTE | 2018-11-21 12:06 | Pharmacy Report ---
Pharmacist Stroke Counseling - Date of Service November 21, 2018 - Scope: Pharmacy has been consulted to provide medication discharge counseling for this patient admitted with ischemic stroke as per the Pharmacist Discharge Counseling for Stroke Patients Protocol. - Medications on Discharge: New Rx's Medication Instructions Recorded enoxaparin 60 mg SC Q12H #8 ea 11/21/18 warfarin [Coumadin] 5 mg PO DAILY@1600 #30 tab 11/21/18 - Action: The above medications, specifically ones for stroke treatment/prophylaxis, have been reviewed in detail with the patient prior to discharge. This includes indication, common adverse reactions, drug interactions, and medication administration. Medication counseling has been employed using the teach-back method to ensure understanding. - Outcome: The patient demonstrated understanding of the medications. Please note, they are aware that the pharmacist will call them within 72 hours post-discharge to confirm that the appropriate medications are being taken and answer any further medication related questions the patient might have at that time. Contact information Individual to be contacted: Patient Phone number: [phone] Best time to call: anytime [phone] Additional comments: Patient was overwhelmed by all of the follow-up appointments, but I did tell him that we will be calling in 72 hours and will be able to double check he understands everything then and that the appointments would be reviewed with him by the nurse prior to discharge. Thank you for allowing pharmacy to be involved in the care of this patient. Please call [phone] or [phone] with any additional questions
--- NOTE | 2018-11-21 17:24 | Discharge Summary ---
Date of Service November 21, 2018 Admission HPI Per Admitting Provider The patient states 1-2 weeks ago, he developed upper respiratory infection symptoms. He states this was associated with a headache. 8 days ago, he reports losing vision in his right eye. He was seen and evaluated by [facility] who recommended ophthalmology consult. Patient was then seen by ophthalmology, who recommended an MRI due to concern of a possible tumor pushing on the optic nerve. MRI was performed outpatient today and showed multiple areas of subacute infarcts in the left medial occipital lobe and right cerebellar hemisphere as well as suspected trace subarachnoid hemorrhage within the left occipital lobe. Pt relates to returning from [place], and starting [employer] workouts around developed symptoms around 11/06 with headache and sinus pressure, eventually went thru work up as above, pt only has residual right upper outer visual field loss in both eyes. There is not a family history of thrombphilia or collagen disorders or cva Admission Exam Per Admitting Provider Patient presented with right upper outer visual field loss this persisted through his hospital stay Principal Diagnosis vertebral artery dissection and embolic stroke Discharge Exam The patient appeared well nourished and normally developed. Vital signs as documented. Head exam is unremarkable. normocephalic, atraumatic still complaining of visual field cut otherwise unremarkable Neck is without jugular venous distension, thyromegaly, or lymphademopathy Lungs are clear to auscultation and percussion. Cardiac exam reveals Rhythm is regular. First and second heart sounds normal. Abdominal exam reveals normal bowel sounds, no masses, no organomegaly Extremities are nonedematous and both pedal pulses are present Neurologic exam is A&Ox3, no focal deficits, strength is equal bilateral Psychologically seems neither anxious or depressed Skin is warm Dry without bruises or lesions Discharge Data Allergies Allergy/AdvReac Type Severity Reaction Status Date / Time No Known Allergies Allergy Unverified 11/19/18 16:15 Consultations 11/19/18 18:10 ED Decision to Admit Stat 11/19/18 20:38 Consult Case Management - Discharge Planning Routine Consult Case Management - Discharge Planning Routine Consult Neurology Routine Ordered Studies 11/19/18 16:54 CT angio head wo/w Stat CT angio neck with con Stat 11/20/18 10:54 CT head/brain wo con Routine Hospital Course (1) Embolic stroke: Patient presents with an outpatient MRI from [facility] with likely left vertebral artery dissection and embolic stroke with possible small subarachnoid hemorrhage. Subarachnoid hemorrhage feels later ruled out. Reynold Shannon and neurology and she recommended anticoagulation with Lovenox bridging to Coumadin. Hypercoagulable workup has been sent and is pending at the time of discharge (2) Vertebral artery dissection: Left vertebral artery dissection is suggested on CT angiogram of the brain anticoagulation is recommended by neurology. Total Time Total Time Spent Total Time Spent (In Minutes): greater than 30 minutes were required to prepare discharge Discharge Plan Discharge Items Patient Disposition: Home - Self-Care Reason For Visit: EMBOIC STROKE Discharge Diagnosis: embolic stroke, vertebral artery dissection Discharge Goals: Decrease discomfort and Improve disease control Activity: As commented below Activity Comment: no intentional exercise Non-emergency contact: Primary Care Provider Call non-emergency contact if: you have any medication questions Follow-up/Referrals: Samina Garcia MD, PhD [Pathologist] - 11/24/18 8:45 am (Please, follow up at [facility] with Dr. Samina Garcia on SaturdayNovember 24 at 8:45 am. *The clinic is located at the rear of this [facility]. You will park behind the hospital in [address] and enter via [facility]. If you have any questions, call The Central Scheduling Department at .) Reynold Shannon MD [Physician] - 12/22/18 9:00 am (Please, follow up at [facility] Neurology Office with Dr. Reynold Sahnnon on SaturdayDecember 22 at 9:00 am. *This office is located at [address] in [place]. If you need to change this appointment, call the office at [phone].) Keesha Castro, [Primary Care Provider] - 11/24/18 2:20 pm (Please, follow up at [facility] with Dr. Keesha Castro on SaturdayNovember 24 at 2:20 pm. *If you need to change this appointment, call the clinic at [phone]. I HAVE ASKED HER TO PROVIDE YOU WITH REFERRALS TO THE THE ANTICOAGULATION CLINIC, DR. REYNOLD SAVAGE (NEUROLOGY), AND OPHTHALMOLOGY. PLEASE, REMIND HER OF THIS BECAUSE IT IS REQUIRED BY YOUR INSURANCE. Thank you ) Diet: Regular Other Ambulatory Orders: Prothrombin Time INR (Routine) Timeframe: 1 Week Facility: [facility] - Location: Administration / Operations Ordered By: Ayan Valente Provider Instructions: Please have outpatient blood work checked 11/22 and 11/25 and follow up with the coumadin clinic Prescriptions: New warfarin [Coumadin] 5 mg Tablet 5 mg PO DAILY@1600 Qty: 30 RF: 0 enoxaparin 60 mg/0.6 mL Syringe 60 mg SC Q12H Qty: 8 RF: 0 Discontinued vzwincrywb-JI-zpaulotfreeag [Vicks Nyquil Nighttime Relief] 6.25-15-325 mg/15 mL Liquid 1 dose PO HS PRN (Reason: Cold Symptoms) RF: 0 amino acids-whey prot conc,iso [Whey Protein] 20 gram-140 kcal/39 gram Powder 1 dose PO UD RF: 0 Stand-Alone Forms: Medications to Prevent Stroke, My [facility] Discharge Orders: Discharge Order (Routine); Ordered 11/21/18 Ordered By: Ayan Dill Admission Data Admit Date/Time: 11/19/18 18:38 Attending Provider: Ayan Dill Admit Provider: Ayan Dill Primary Care Provider: Keesha Castro Other Providers: Jeffrey Thompson Kathleen Service: Telemetry Other Interventions: Discharge Summary Assessment (RN) Last Done: 11/21/18 11:42 DC Date/Time DO NOT enter until pt leaves facility: 11/21/18 13:30
--- NOTE | 2018-11-24 15:15 | Pharmacy Report ---
Pharmacist Post D/C Phone Note - Phone Note: Date of phone call: November 24, 2018. Individual with whom pharmacist spoke to: LINDA TANG The following questions were reviewed during the phone call with responses listed below each: Can you tell me the medications that you are currently taking as well as when and how you take each medication? -See Table Below When have you missed any doses of your medications? - denies missed doses What side effects are you having from your medications, specifically, the new medications you were started on? - denies side effects - patient reports lovenox injections are going well - denies bruising What questions do you have about your medications? - denies questions What problems are you having obtaining your medications? - no problems When is your next appointment with your primary care doctor? - patient had appointment at [facility] today Additional comments: - patient had his first appointment at the Clinic this morning - new medications were reviewed in detail there. - he remains on lovenox + warfarin As per the Pharmacist Discharge Counseling for Stroke Patients Protocol, this phone call has been completed within 72 hours of discharge. Thank you for allowing us to be involved in the care of this patient. - Home Medications: New Rx's Medication Instructions Recorded enoxaparin 60 mg SC Q12H #8 ea 11/21/18 warfarin [Coumadin] 5 mg PO DAILY@1600 #30 tab 11/21/18
[2018-11-25 10:34] LABS: Protein S Functional(Activity) 105 % (70-150)
== END 2018-11-21 13:30 | disposition home or self-care (01) | DRG 64 ==
LOC: ED 15:08 → 2S 18:38